=== PATIENT | male | born 1985 | race Caucasian/White ===

== ENCOUNTER 2019-03-06 18:03 | Emergency (ER) | payer MEDICAID ==
[~2019-03-06] VITALS: Ht 182.9 cm; Wt 83.0 kg
[2019-03-06 18:06] VITALS: BP 129/72
[2019-03-06] MEDS ORDERED: KETOROLAC 60 MG/2 ML VIAL IM ONE (18:20)
[2019-03-06] MEDS ORDERED: methylPREDNISolone SS 125 MG in WATER STERILE 2 ML IM ONE (18:30)
[2019-03-06 18:54] VITALS: BP 129/72
== END 2019-03-06 18:54 | disposition home or self-care (01) ==
LOC: MED 18:03
DX: R51 Headache (principal); R09.81 Nasal congestion
CPT/HCPCS: 96372; 99283; J1885; J2930

== ENCOUNTER 2021-01-16 20:07 | Emergency (ER) | payer MEDICAID, OTHER ==
[~2021-01-16] VITALS: Ht 182.9 cm; Wt 79.4 kg
[2021-01-16 20:15] VITALS: BP 109/67
--- NOTE | 2021-01-16 20:18 | NUR ---
TO LOBBY A/W BED AMBULATORY
[2021-01-16] MEDS ORDERED: KETOROLAC 60 MG/2 ML VIAL IM ONE (21:35)
[2021-01-16] MEDS ORDERED: PRED20TA5 PO (21:42)
[2021-01-16] MEDS ORDERED: IBUP-2213 PO (21:42)
--- NOTE | 2021-01-16 22:24 | NUR ---
Patient discharged with v/s stable. Written and verbal after care instructions given and explained. Patient alert, oriented and verbalized understanding of instructions. Ambulatory with steady gait. All questions addressed prior to discharge. ID band removed. Patient advised to follow up with PMD. Rx of MOTRIN AND PREDNISONE given. Patient educated on indication of medication including possible reaction and side effects. Opportunity to ask questions provided and answered.
== END 2021-01-16 22:24 | disposition home or self-care (01) ==
LOC: MED 20:07
DX: J02.9 Acute pharyngitis, unspecified (principal)
CPT/HCPCS: 96372; 99283

== ENCOUNTER 2021-07-06 22:09 | Emergency (ER) | payer OTHER ==
[~2021-07-06] VITALS: Ht 182.9 cm; Wt 83.9 kg
[~2021-07-06 22:09] MED LIST: IBUP-2213 PO; PRED20TA5 PO
[2021-07-06 22:20] VITALS: BP 119/75
--- NOTE | 2021-07-06 22:23 | NUR ---
TO LOBBY A/W BED AMBULATORY
[2021-07-06] MEDS ORDERED: LIDOCAINE 2% 1000 MG/50 ML VIAL INJ ONE (23:05)
[2021-07-06] MEDS ORDERED: KETOROLAC 60 MG/2 ML VIAL IM ONE (23:05)
[2021-07-06] MEDS ORDERED: AMOXIL/CLAVULANATE 875/125 MG 1 TAB PO ONE (23:05)
[2021-07-06] MEDS ORDERED: IBUP-1801 PO (23:07)
[2021-07-06] MEDS ORDERED: AMOX-1000 PO (23:07)
[2021-07-06] MEDS ORDERED: AMOXICILLIN 500 MG CAP PO ONE (23:10)
[2021-07-06 23:49] VITALS: BP 119/75
--- NOTE | 2021-07-06 23:50 | NUR ---
Patient discharged with v/s stable. Written and verbal after care instructions given and explained. Patient verbalized understanding. Ambulatory with steady gait. All questions addressed prior to discharge. Advised to follow up with PMD.
[2021-07-07] MEDS ORDERED: methylPREDNISolone SS 125 MG/2 ML VIAL IVP ONE (00:05)
[2021-07-07] MEDS ORDERED: NACL 0.9% 1,000 ML IV ONE (00:05)
[2021-07-07] MEDS ORDERED: EPINEPHrine 1 MG/ML AMP IM ONE (00:05)
[2021-07-07] MEDS ORDERED: diphenhydrAMINE 50 MG/ML VIAL IVP ONE (00:05)
[2021-07-07] MEDS ORDERED: FAMOTIDINE 20 MG/2 ML VIAL IVP ONE (00:05)
[2021-07-07] MEDS ORDERED: FAMO-90 PO (04:36)
[2021-07-07] MEDS ORDERED: EPIN1KIT31 IM (04:36)
[2021-07-07] MEDS ORDERED: DIPH25TA53 PO (04:36)
[2021-07-07] MEDS ORDERED: PRED20TA5 PO (04:36)
== END 2021-07-06 23:48 | disposition home or self-care (01) ==
LOC: MED 22:09
DX: T78.2XXA Anaphylactic shock, unspecified, initial encounter (principal); K08.89 Other specified disorders of teeth and supporting structures; R55 Syncope and collapse
CPT/HCPCS: 64400; 96372; 99284; J1885; J2001

== ENCOUNTER 2021-07-06 23:58 | Emergency (ER) | payer OTHER ==
[~2021-07-06] VITALS: Ht 182.9 cm; Wt 83.9 kg
[~2021-07-06 23:58] MED LIST changes: +AMOX-1000 PO; +IBUP-1801 PO
[2021-07-07] MEDS ORDERED: EPINEPHrine 1 MG/ML AMP ONE (00:01)
[2021-07-07] MEDS ORDERED: diphenhydrAMINE 50 MG/ML VIAL ONE (00:01)
[2021-07-07] MEDS ORDERED: EPINEPHrine PFS 0.1 MG/ML SYR IVP ONE (00:02)
[2021-07-07] MEDS ORDERED: methylPREDNISolone SS 125 MG/2 ML VIAL ONE (00:04)
[2021-07-07 00:12] VITALS: BP 81/44
--- NOTE | 2021-07-07 00:14 | NUR ---
w/c assited to bed 10
[2021-07-07] MEDS ORDERED: methylPREDNISolone SS 125 MG/2 ML VIAL IVP ONE (00:20)
[2021-07-07] MEDS ORDERED: NACL 0.9% 1,000 ML IV ONE ×2 (00:20→01:20)
[2021-07-07] MEDS ORDERED: diphenhydrAMINE 50 MG/ML VIAL IVP ONE (00:20)
[2021-07-07] MEDS ORDERED: EPINEPHrine 1 MG/ML AMP IM ONE (00:20)
--- NOTE | 2021-07-07 01:22 | NUR ---
patient able to ambulate 20 ft with a steady gait.
--- NOTE | 2021-07-07 01:26 | NUR ---
IV removed, catheter intact and site benign. Applied folded 4x4 gauze and tape to stop bleeding.
[2021-07-07 03:28] VITALS: BP 108/66
--- NOTE | 2021-07-07 03:28 | NUR ---
Patient discharged with v/s stable. Written and verbal after care instructions given and explained. Patient verbalized understanding. Ambulatory with steady gait. ID band removed. All questions addressed prior to discharge. Advised to follow up with PMD.
[2021-07-07] MEDS ORDERED: DIPH25TA53 PO (04:36)
[2021-07-07] MEDS ORDERED: PRED20TA5 PO (04:36)
[2021-07-07] MEDS ORDERED: EPIN1KIT31 IM (04:36)
[2021-07-07] MEDS ORDERED: FAMO-90 PO (04:36)
== END 2021-07-07 03:28 | disposition home or self-care (01) ==
LOC: MED 23:58
DX: T78.49XA Other allergy, initial encounter (principal); Z79.1 Long term (current) use of non-steroidal anti-inflammatories (NSAID); Z79.2 Long term (current) use of antibiotics; Z79.899 Other long term (current) drug therapy; Z88.4 Allergy status to anesthetic agent; X58.XXXA Exposure to other specified factors, initial encounter
CPT/HCPCS: 96361; 96372; 96374; 96375; 99284; J0171; J1200; J2930; J7030